=== PATIENT | male | born 1980 | race Hispanic/Latino ===

== ENCOUNTER 2016-08-29 18:31 | Emergency (ER) | payer OTHER ==
[~2016-08-29] VITALS: Ht 180.3 cm; Wt 86.2 kg
[~2016-08-29 18:31] MED LIST: ANAPROX DS550 MG PO; CYCLOBENZAPRINE10 M1 PO; HYDROCHLOROTHIA25 M1 PO; IBUPROFEN800 M1 PO; IMITREX50 M1 PO; KEFLEX500 MG PO; MOTRIN800 MG PO; OXYCODONE-ACET1 EACH PO; PERCOCET 5-3251 EACH PO; PRILOSEC OTC20 MG PO; TRAMADOL HCL50 M1 PO; TYLENOL EXTRA500 M2 PO; ULTRAM(MONOGRAP50 MG PO; ZOFRAN ODT4 MG PO
[2016-08-29 18:48] VITALS: BP 127/72
--- NOTE | 2016-08-29 20:05 | ED HEADACHE COMPLAINT ---
History of Present Illness General Chief Complaint: Headache Stated Complaint: ORTEGA X 1 HOUR Source: patient Exam Limitations: no limitations Vital Signs & Intake/Output Vital Signs & Intake/Output Vital Signs Date Time Temp Pulse Resp B/P B/P Pulse O2 O2 Flow FiO2 Mean Ox Delivery Rate 08/29 2000 98 Room Air 08/29 1848 98.0 66 18 127/72 98 Room Air ED Intake and Output 08/30 0000 08/29 1200 Intake Total Output Total Balance Patient 190 lb Weight Weight Reported by Patient Measurement Method Allergies Coded Allergies: NO KNOWN ALLERGIES (10/06/15) Reconcile Medications Amitriptyline HCl 25 MG TABLET 1 TAB PO DAILY PAIN (Reported) Cyclobenzaprine HCl 10 MG TABLET 1 TAB PO 4 TIMES/DAY PRN MUSCLE SPASM/ HEADACHE Cyclobenzaprine HCl 10 MG TABLET 1 TAB PO 4 TIMES/DAY PRN MUSCLE SPASM Hydrochlorothiazide 25 MG TABLET 1 TAB PO DAILY HIGH BLOOD PRESSURE Ibuprofen 800 MG TABLET 1 TAB PO TID PRN HEADACHE Naproxen (Naprosyn) 500 MG TABLET 1 TAB PO BID PAIN Ondansetron (Zofran Odt) 4 MG TAB.RAPDIS 1 TAB SL TID PRN NAUSEA Sumatriptan Succinate (Imitrex) 50 MG TABLET 1 TAB PO TID HEADACHE Sumatriptan Succinate (Imitrex) 50 MG TABLET 1 TAB PO TID PRN MIGRAINE Tramadol HCl 50 MG TABLET 1 TAB PO BIDP PRN PAIN TEN...[id number] Triage Note: PT STTAES HE IS HAVING A MIGRAINE CHRONIC ISSUE FOR HIM. PT STATES HE RAN OUT OF HIS MEDS FOR HTN IMITREX AND HTZ Triage Nurses Notes Reviewed? yes Onset: Abrupt Duration: hour(s):, better Timing: recent history Quality/Severity: mild, moderate Head Injury Location: global Modifying Factors: Improves With: rest. Associated Symptoms: MILD NAUSEA, NOW RESOLVED HPI: 35-year-old gentleman history of migraine headaches, presents with a headache consistent with his prior episodes of migraines, which is now resolved. He states that he had this headache for approximately 1-[address] to the emergency department. However, he notes that he ran out of his Imitrex and other supportive medications. He is asking for refills. He notes no fever chills dizziness vertigo chest pain shortness of breath. He is otherwise well and is told concerns. Past History Travel History Traveled to [place] past 21 day No Medical History Any Pertinent Medical History? 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 No Review of Systems Review of Systems Constitutional: Reports: no symptoms. Eyes: Reports: no symptoms. Ears, Nose, Throat, Mouth: Reports: no symptoms. Respiratory: Reports: no symptoms. Cardiovascular: Reports: no symptoms. Gastrointestinal/Abdominal: Reports: no symptoms. Genitourinary: Reports: no symptoms. Musculoskeletal: Reports: no symptoms. Skin: Reports: no symptoms. Neurological/Psychological: Reports: no symptoms. Hematologic/Endocrine: Reports: no symptoms. Endocrine: Reports: no symptoms. Immunologic/Allergic: Reports: no symptoms. All Other Systems: Reviewed and Negative Physical Exam Physical Exam General Appearance: well developed/nourished, mild distress Head: atraumatic, normal appearance Eyes: Bilateral: normal appearance. Ears, Nose, Throat: normal pharynx, normal ENT inspection Neck: normal inspection, supple, full range of motion Respiratory: normal breath sounds, chest non-tender, no respiratory distress, quiet respiration, lungs clear Cardiovascular: regular rate/rhythm Gastrointestinal: normal bowel sounds, soft, non-tender, no organomegaly Back: normal inspection, normal range of motion Extremities: normal inspection Psychiatric: awake, alert, oriented x 3 Cranial Nerves: normal hearing, normal speech, PERRL Coordination/Gait: normal finger to nose, normal gait Motor/Sensory: no motor/sensory deficits Reflexes: 1+: bicep (R), bicep (L). Skin: intact, normal color, warm/dry Core Measures Severe Sepsis Present: No Septic Shock Present: No Progress Differential Diagnosis: cluster ORTEGA, migraine ORTEGA, musculoskeletal pain Plan of Care: Patient's headache had resolved upon arrival to the emergency department. I gave him refills. I encouraged him to follow-up with his primary care doctor. Departure Departure Disposition: HOME OR SELF CARE Condition: Stable Clinical Impression Primary Impression: Headache Referrals: RAFFY SOTO APRN (PCP/Family) Departure Forms: Customer Survey General Discharge Information Prescriptions: Current Visit Scripts Cyclobenzaprine HCl 1 TAB PO 4 TIMES/DAY PRN MUSCLE SPASM #30 TAB Ref 1 Sumatriptan Succinate (Imitrex) 1 TAB PO TID PRN MIGRAINE #9 TAB Ref 1 Tramadol HCl 1 TAB PO BIDP PRN PAIN #10 TAB TEN...[id number] Ondansetron (Zofran Odt) 1 TAB SL TID PRN NAUSEA #10 TAB Ref 1 Hydrochlorothiazide 1 TAB PO DAILY #30 TAB Naproxen (Naprosyn) 1 TAB PO BID #30 TAB
[2016-08-29] MEDS ORDERED: AMITRIPTYLINE H25 M2 PO (20:11)
[2016-08-29] MEDS ORDERED: ZOFRAN ODT4 M1 SL (20:13)
[2016-08-29] MEDS ORDERED: CYCLOBENZAPRINE10 M1 PO (20:13)
[2016-08-29] MEDS ORDERED: HYDROCHLOROTHIA25 M1 PO (20:13)
[2016-08-29] MEDS ORDERED: IMITREX50 M1 PO (20:13)
[2016-08-29] MEDS ORDERED: NAPROSYN500 M1 PO (20:13)
[2016-08-29] MEDS ORDERED: TRAMADOL HCL50 M1 PO (20:13)
== END 2016-08-29 20:21 ==
LOC: ERH 18:31
DX: R51 Headache (principal)

== ENCOUNTER 2017-11-30 15:05 | Emergency (ER) | payer OTHER ==
[~2017-11-30] VITALS: Ht 180.3 cm; Wt 90.7 kg
[~2017-11-30 15:05] MED LIST changes: +AMITRIPTYLINE H25 M2 PO; +NAPROSYN500 M1 PO; +ZOFRAN ODT4 M1 SL
[2017-11-30 15:13] VITALS: BP 181/97
[2017-11-30 15:39] LABS: ABSOLUTE BASOPHIL COUNT 0 /CUMM (0.0-0.2); ABSOLUTE EOSINOPHIL COUNT 0.4 /CUMM (0.0-0.7); ABSOLUTE GRANULOCYTE CT 8.7 /CUMM (1.4-6.5); ABSOLUTE LYMPH COUNT 2.1 /CUMM (1.2-3.4); ABSOLUTE MONOCYTE COUNT 0.8 /CUMM (0.10-0.60); BASOPHIL % 0.3 % (0.0-2.0); EOSINOPHIL % 3.6 % (0-5); GRANULOCYTE % 72.4 % (42.2-75.2); HEMATOCRIT 40.5 % (42-52); MEAN CORPUSCULAR HGB 29.7 PG (27.0-31.0); MEAN CORPUSCULAR HGB CONC 33.3 G/DL (33.0-37.0); MEAN CORPUSCULAR VOLUME 89.1 FL (80.0-94.0); MEAN PLATELET VOLUME 8.5 FL (7.4-10.4); PLATELET COUNT 291 /CUMM (130-400); RBC DISTRIBUTION WIDTH 12.8 % (11.5-14.5); RED BLOOD CELL CT 4.55 /CUMM (4.70-6.10)
[2017-11-30 15:49] LABS: PT 11.5 SEC (9.4-12.5); PTT 26 SEC (25-37)
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
--- NOTE | 2017-11-30 16:28 | RADIOLOGY REPORT ---
EXAMINATION: XR SHOULDER, LEFT CLINICAL INFORMATION: Left shoulder injury. Rule out fracture or dislocation. COMPARISON: Contralateral right shoulder films dated 06/19/2014. CT scan of the chest dated 11/30/2017. TECHNIQUE: Three views of the left shoulder. FINDINGS: The bones and soft tissues are normal. No fracture. Glenohumeral and acromioclavicular alignment is anatomic with normal joint space. No abnormal soft tissue calcifications. IMPRESSION: Normal left shoulder.
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
== END 2017-11-30 17:52 ==
LOC: ERH 15:05
PROVIDERS: Physician Assistant Medical
DX: R10.9 Unspecified abdominal pain (principal); M25.512 Pain in left shoulder; M54.6 Pain in thoracic spine; F17.210 Nicotine dependence, cigarettes, uncomplicated; I10 Essential (primary) hypertension; G43.909 Migraine, unspecified, not intractable, without status migrainosus; V03.00XA Pedestrian on foot injured in collision with car, pick-up truck or van in nontraffic accident, initial encounter
CPT/HCPCS: 73030-LT; 74177